=== PATIENT | female | born 1990 | race Hispanic/Latino ===

== ENCOUNTER 2021-04-05 09:10 | Day surgery (SDC) | payer OTHER ==
[2021-04-03 12:58] VITALS: BP 140/72
[2021-04-04 10:44] VITALS: BP 140/72
[2021-04-04 14:29] LABS: BASOPHILS % (AUTO) 0.4 % (0.0-5.0); EOSINOPHILS % (AUTO) 1.4 % (0.0-8.0); HEMATOCRIT 38.6 % (36-48); LYMPHOCYTES % (AUTO) 32.6 % (21.0-51.0); MEAN CORPUSCULAR HGB CONC 30.8 g/dL (32.0-36.0); MEAN CORPUSCULAR VOLUME 84.5 fL (79-99); MONOCYTES % (AUTO) 6.6 % (3.0-13.0); NEUTROPHILS % (AUTO) 58.8 % (40.0-77.0); PLATELET COUNT (AUTO) 437 K/uL (130-400); RED BLOOD CELL COUNT(AUTO) 4.57 MIL/uL (4.00-5.50); RED CELL DISTRIBUTION WIDTH 14.3 % (11.0-15.5); WHITE BLOOD COUNT (AUTO) 11.1 K/uL (4.8-10.8)
[2021-04-05] VITALS (15 sets, daily range): BP systolic 94–123; BP diastolic 49–75
[~2021-04-05] VITALS: Ht 160 cm; Wt 53.2 kg
[~2021-04-05 09:10] MED LIST: CALDOLOR 800MG+NS 250ML 250 ML IV SCH; CEFAZOLIN SODIUM 1 GM VIAL IVP SCH; IRON PO; LACTATED RINGERS 1000ML 1,000 ML IV SCH
[2021-04-05] MEDS ORDERED: PROPOFOL 10 MG/ML 20ML VIAL IV ONE (09:18)
[2021-04-05] MEDS ORDERED: MIDAZOLAM HCL 1 MG/ML 2ML VIAL ONE (09:18)
[2021-04-05] MEDS ORDERED: CALDOLOR 800MG+NS 250ML 250 ML IV ONE (09:18)
[2021-04-05] MEDS ORDERED: LIDOCAINE PF 100MG/5ML (2%) SYRINGE 5ML ONE (09:18)
[2021-04-05] MEDS ORDERED: FENTANYL CITRATE PF 50 MCG/1 ML 2ML VIAL ONE ×3 (09:19→10:10)
[2021-04-05] MEDS ORDERED: ONDANSETRON 4MG INJ ONE (09:19)
[2021-04-05] MEDS ORDERED: ROCURONIUM 10MG/1ML SYR 10 MG/ML ML ONE (09:19)
[2021-04-05] MEDS ORDERED: CEFAZOLIN SODIUM 1 GM VIAL ONE (09:30)
[2021-04-05] MEDS: CEFAZOLIN SODIUM 1 GM VIAL ONE ×2 (09:32→09:51)
[2021-04-05] MEDS ORDERED: DEXAMETHASONE SOD PHOSPHATE 4 MG/ML 1ML VIAL ONE (09:53)
[2021-04-05] MEDS ORDERED: MEPERIDINE-PF 25 MG/ML SYG ONE (10:09)
== END 2021-04-05 12:03 | disposition home or self-care (01) ==
LOC: DAH 09:10
PROVIDERS: ATTEND Obstetrics & Gynecology
DX: N92.1 Excessive and frequent menstruation with irregular cycle (principal); Z20.822 Contact with and (suspected) exposure to COVID-19; E66.01 Morbid (severe) obesity due to excess calories; Z68.42 Body mass index [BMI] 45.0-49.9, adult
CPT/HCPCS: 36415; 58558; 84703; 85025; 86850; 86900; 86901; 87635; A4215; A4221; A4222; A4223; A4351; A4663; A4930 ×2; A6260; C9803; J0690; J1100; J1741; J2001; J2175; J2250; J2405; J2704; J3010 ×3; J7030; J7120 ×3